=== PATIENT | male | born 1950 | race African-American/Black ===

== ENCOUNTER 2021-02-14 11:41 | Observation (INO) ==
[2021-02-14] MEDS ORDERED: ONDANSETRON 4 MG/2 ML VIAL IV STA (12:25)
[2021-02-14] MEDS ORDERED: SODIUM CHLORIDE 0.9% 1,000 ML IV STA (12:25)
[2021-02-14 12:45] LABS: Basophils % 0.2 % (0.0-0.8); Eosinophils % 0.3 % (0.00-10.9); Hematocrit 37.1 VOL% (42.0-52.0); Hemoglobin 12.5 GM/DL (14.0-18.0); Immature Granulocytes % 0.3 %; Immature Granulocytes Absolute 0.02 #; Lymphocytes # 1.5 10*3/uL (1.4-4.0); Mean Corpuscular HGB Conc 33.7 GM/DL (32-36); Mean Corpuscular Volume 85.1 FL (87-102); Monocytes % 5.1 % (1.7-12.7); Neutrophils % 71.1 % (38.7-73.9); Platelet Count 239 T/CUMM (130-400); Red Blood Count 4.36 MC/CUMM (3.8-5.5); Red Cell Distribution Width 12.4 % (9.3-17.3); White Blood Count 6.5 T/CUMM (4-12)
[2021-02-14 13:06] LABS: Albumin 3.8 G/DL (3.4-5.0); Bilirubin,Total 0.8 MG/DL (0.2-1.0); Calcium 9.7 MG/DL (8.5-10.1); Osmolality,Calculated 284.4 MOS/KG (273-304); Potassium 4.9 MMOL/L (3.5-5.1); Total Protein 8.5 G/DL (6.4-8.2)
[2021-02-14 13:17] LABS: Anisocytosis 1+; Burr Cells Few; Platelet Estimate Normal
[2021-02-14 13:22] LABS: Bilirubin,Urine Negative (Negative); Blood, Urine Negative (Negative); Glucose,Urine (UA) >=500 mg/dL (Negative); Ketones,Urine 5 mg/dL (Negative); Nitrite,Urine Negative (Negative); Protein,Urine 100 MG/DL; RBC,Urine 1 /HPF (0-4); Urine Appearance CLEAR (Clear); Urine Color Straw (Yellow); Urine Specific Gravity 1.013 (1.001-1.035); Urine Urobilinogen < 2.0 EU/DL (0.2-1.0)
[2021-02-14] MEDS ORDERED: PROMETHAZINE 25 MG/1 ML VIAL IM STA (14:31)
[2021-02-14] MEDS ORDERED: GLUCAGON 1 MG VIAL IM PRN (17:18)
[2021-02-14] MEDS ORDERED: DEXTROSE 50% 25 GM/50 ML VIAL IV PRN (17:18)
[2021-02-14] MEDS ORDERED: PROMETHAZINE 25 MG/1 ML VIAL IM PRN (17:18)
[2021-02-14] MEDS ORDERED: hydrALAZINE 20 MG/1 ML VIAL IV PRN (17:18)
[2021-02-14] MEDS: ENOXAPARIN 40 MG/0.4 ML SYRINGE SUBCUT SCH (18:22)
[2021-02-14] MEDS: MORPHINE 4 MG/1 ML VIAL IV PRN (19:06)
[2021-02-14] MEDS: ONDANSETRON 4 MG/2 ML VIAL IV PRN (19:08)
[2021-02-14] MEDS: SODIUM CHLORIDE 0.9% 1,000 ML IV SCH (19:08)
[2021-02-14] MEDS: INSULIN LISPRO 100 UNIT/ML SUBCUT SCH (21:34)
[2021-02-15] MEDS: MORPHINE 4 MG/1 ML VIAL IV PRN ×3 (00:23→21:37)
[2021-02-15] MEDS: ONDANSETRON 4 MG/2 ML VIAL IV PRN ×2 (00:23→04:14)
[2021-02-15] MEDS ORDERED: INDOCYANINE GREEN 25 MG VIAL IV ONE (00:54)
[2021-02-15 05:53] LABS: Basophils % 0.1 % (0.0-0.8); Hematocrit 37.5 VOL% (42.0-52.0); Hemoglobin 12.7 GM/DL (14.0-18.0); Immature Granulocytes % 0.3 %; Immature Granulocytes Absolute 0.03 #; Lymphocytes # 1.8 10*3/uL (1.4-4.0); Lymphocytes % 18.3 % (21.2-54.2); Mean Corpuscular HGB Conc 33.9 GM/DL (32-36); Mean Corpuscular Volume 85.8 FL (87-102); Mean Platelet Volume 11.2 FL (9.6-12.0); Monocytes % 6.8 % (1.7-12.7); Neutrophils % 74.5 % (38.7-73.9); Platelet Count 282 T/CUMM (130-400); Red Blood Count 4.37 MC/CUMM (3.8-5.5); Red Cell Distribution Width 12.6 % (9.3-17.3); White Blood Count 9.9 T/CUMM (4-12)
[2021-02-15 06:18] LABS: Calcium 9.2 MG/DL (8.5-10.1); Osmolality,Calculated 287.7 MOS/KG (273-304); Potassium 4.2 MMOL/L (3.5-5.1)
[2021-02-15] MEDS: SODIUM CHLORIDE 0.9% 1,000 ML IV SCH ×2 (06:45→16:18)
[2021-02-15] MEDS: INSULIN LISPRO 100 UNIT/ML SUBCUT SCH ×4 (09:10→21:36)
[2021-02-15] MEDS: PANTOPRAZOLE 40 MG TABLET PO SCH (09:10)
[2021-02-15] MEDS ORDERED: LIDOCAINE 2% 5 ML VIAL ONE (10:40)
[2021-02-15] MEDS ORDERED: ROCURONIUM 50 MG/5 ML VIAL IV ONE (10:40)
[2021-02-15] MEDS ORDERED: MIDAZOLAM 2 MG/2 ML VIAL ONE (10:40)
[2021-02-15] MEDS ORDERED: propofoL 200 MG/20 ML VIAL IV ONE (10:40)
[2021-02-15] MEDS ORDERED: fentaNYL 100 MCG/2 ML VIAL ONE ×2 (10:40→13:04)
[2021-02-15] MEDS ORDERED: BUPIVACAINE MPF 0.25% 30 ML VIAL ONE (10:43)
[2021-02-15] MEDS ORDERED: LIDOCAINE 1% 20 ML VIAL ONE (10:43)
[2021-02-15] MEDS ORDERED: TISSUE ADHESIVE 1 EACH APPLICATOR TOP ONE ×2 (10:43→12:21)
[2021-02-15] MEDS ORDERED: DEXTROSE 50% 25 GM/50 ML VIAL IV PRN (11:05)
[2021-02-15] MEDS ORDERED: GLUCAGON 1 MG VIAL IM PRN (11:05)
[2021-02-15] MEDS ORDERED: ePHEDrine 50 MG/ML VIAL ONE (12:20)
[2021-02-15] MEDS ORDERED: LIDOCAINE 1%/EPI INJ 20 ML VIAL ONE (12:22)
[2021-02-15] MEDS ORDERED: SEVOFLURANE 1 UNIT/15 MINUTE INH ONE ×3 (12:54→13:07)
[2021-02-15] MEDS ORDERED: ONDANSETRON 4 MG/2 ML VIAL ONE (12:54)
[2021-02-15] MEDS ORDERED: SUGAMMADEX 200 MG/2 ML VIAL IV ONE (12:55)
[2021-02-15] MEDS ORDERED: HYDROmorphone 2 MG/1 ML VIAL ONE (13:17)
[2021-02-15] MEDS: HYDROmorphone 2 MG/1 ML VIAL IV PRN ×2 (13:25→14:00)
[2021-02-15] MEDS ORDERED: ONDANSETRON 4 MG/2 ML VIAL IV PRN (13:31)
[2021-02-15] MEDS: SIMVASTATIN 10 MG TABLET PO SCH (21:38)
[2021-02-15] MEDS: ENOXAPARIN 40 MG/0.4 ML SYRINGE SUBCUT SCH (21:41)
[2021-02-16] MEDS: MORPHINE 4 MG/1 ML VIAL IV PRN ×3 (04:40→19:16)
[2021-02-16] MEDS: SODIUM CHLORIDE 0.9% 1,000 ML IV SCH ×2 (04:49→17:36)
[2021-02-16 05:52] LABS: Basophils % 0.2 % (0.0-0.8); Eosinophils % 0.2 % (0.00-10.9); Hematocrit 37.7 VOL% (42.0-52.0); Hemoglobin 12.1 GM/DL (14.0-18.0); Immature Granulocytes % 0.3 %; Immature Granulocytes Absolute 0.03 #; Lymphocytes # 1.9 10*3/uL (1.4-4.0); Mean Corpuscular HGB Conc 32.1 GM/DL (32-36); Mean Corpuscular Volume 89.8 FL (87-102); Mean Platelet Volume 11.4 FL (9.6-12.0); Monocytes % 3.5 % (1.7-12.7); Neutrophils % 79.8 % (38.7-73.9); Platelet Count 266 T/CUMM (130-400); Red Cell Distribution Width 12.8 % (9.3-17.3); White Blood Count 11.9 T/CUMM (4-12)
[2021-02-16 06:16] LABS: Albumin 2.9 G/DL (3.4-5.0); Bilirubin,Total 2.2 MG/DL (0.2-1.0); Calcium 8.7 MG/DL (8.5-10.1); Osmolality,Calculated 284.8 MOS/KG (273-304); Potassium 4.7 MMOL/L (3.5-5.1); Total Protein 7.5 G/DL (6.4-8.2)
[2021-02-16] MEDS: INSULIN LISPRO 100 UNIT/ML SUBCUT SCH ×4 (08:42→21:42)
[2021-02-16] MEDS: amLODIPine 5 MG TABLET PO SCH (08:43)
[2021-02-16] MEDS: lisinopriL 10 MG TABLET PO SCH (08:43)
[2021-02-16] MEDS: PANTOPRAZOLE 40 MG TABLET PO SCH (08:43)
[2021-02-16] MEDS ORDERED: ZALEPLON 5 MG CAPSULE PO PRN (20:38)
[2021-02-16] MEDS ORDERED: SODIUM CHLORIDE 0.65% NASAL SPRAY 45 ML BOTTLE BOTH NARES PRN (20:38)
[2021-02-16] MEDS: ENOXAPARIN 40 MG/0.4 ML SYRINGE SUBCUT SCH (20:54)
[2021-02-16] MEDS: oxyCODONE/ACETAMINOPHEN 5-325 MG TABLET PO PRN (20:55)
[2021-02-16] MEDS: SIMVASTATIN 10 MG TABLET PO SCH (20:55)
[2021-02-16] MEDS ORDERED: INSULIN GLARGINE 100 UNIT/ML SUBCUT SCH (21:00)
[2021-02-17 05:21] LABS: Basophils % 0.2 % (0.0-0.8); Eosinophils # 0.1 10*3/uL (0.0-0.87); Eosinophils % 1.2 % (0.00-10.9); Hematocrit 34.2 VOL% (42.0-52.0); Hemoglobin 11.5 GM/DL (14.0-18.0); Immature Granulocytes % 0.2 %; Immature Granulocytes Absolute 0.02 #; Lymphocytes # 3.9 10*3/uL (1.4-4.0); Lymphocytes % 42.9 % (21.2-54.2); Mean Corpuscular HGB Conc 33.6 GM/DL (32-36); Mean Corpuscular Volume 86.6 FL (87-102); Monocytes % 6.8 % (1.7-12.7); Neutrophils % 48.7 % (38.7-73.9); Platelet Count 242 T/CUMM (130-400); Red Blood Count 3.95 MC/CUMM (3.8-5.5); Red Cell Distribution Width 12.5 % (9.3-17.3)
[2021-02-17] MEDS: SODIUM CHLORIDE 0.9% 1,000 ML IV SCH ×2 (05:29)
[2021-02-17 06:00] LABS: Albumin 2.7 G/DL (3.4-5.0); Bilirubin,Direct 0.35 MG/DL (0.0-0.20); Bilirubin,Total 2.2 MG/DL (0.2-1.0); Calcium 8.4 MG/DL (8.5-10.1); Osmolality,Calculated 281.4 MOS/KG (273-304); Potassium 3.5 MMOL/L (3.5-5.1); Total Protein 6.9 G/DL (6.4-8.2)
[2021-02-17] MEDS: INSULIN LISPRO 100 UNIT/ML SUBCUT SCH (10:35)
[2021-02-17] MEDS: lisinopriL 10 MG TABLET PO SCH (10:53)
[2021-02-17] MEDS: oxyCODONE/ACETAMINOPHEN 5-325 MG TABLET PO PRN (10:53)
[2021-02-17] MEDS: PANTOPRAZOLE 40 MG TABLET PO SCH (10:54)
[2021-02-17] MEDS: amLODIPine 5 MG TABLET PO SCH (10:54)
[2021-02-17 11:55] VITALS: BP 127/61
== END 2021-02-17 14:40 | disposition home or self-care (01) ==
LOC: N.ED 11:41 → N.EDINP 11:41 → N.5E 19:01
PROVIDERS: ADMIT Internal Medicine; ATTEND Internal Medicine

== ENCOUNTER 2021-05-24 01:53 | Observation (INO) ==
[2021-05-24 02:40] LABS: Basophils % 0.1 % (0.0-0.8); Hematocrit 31.9 VOL% (42.0-52.0); Hemoglobin 10.1 GM/DL (14.0-18.0); Immature Granulocytes % 0.6 %; Immature Granulocytes Absolute 0.12 #; Lymphocytes % 5.1 % (21.2-54.2); Mean Corpuscular HGB Conc 31.7 GM/DL (32-36); Mean Corpuscular Volume 90.4 FL (87-102); Mean Platelet Volume 10.7 FL (9.6-12.0); Monocytes % 3.4 % (1.7-12.7); Neutrophils % 90.8 % (38.7-73.9); Platelet Count 277 T/CUMM (130-400); Red Blood Count 3.53 MC/CUMM (3.8-5.5); Red Cell Distribution Width 12.5 % (9.3-17.3); White Blood Count 19.3 T/CUMM (4-12)
[2021-05-24 03:11] LABS: Hypochromasia 1+; Lymphocytes 3 % (20-55); Microcytosis Slight; Ovalocytes Slight; Segmented Neutrophils 94 % (50-85); Total Cells Counted 100
[2021-05-24 03:12] LABS: Acanthocytes Few; Albumin 2.6 G/DL (3.4-5.0); Calcium 8.4 MG/DL (8.5-10.1); Osmolality,Calculated 278.2 MOS/KG (273-304); Platelet Estimate Normal; Potassium 5.2 MMOL/L (3.5-5.1); Total Protein 8.1 G/DL (6.4-8.2)
[2021-05-24] MEDS ORDERED: CLINDAMYCIN INJ 600 MG/50 ML PREMIX IV STA (03:15)
[2021-05-24] MEDS ORDERED: MORPHINE 2 MG/1 ML SYRINGE IV STA (03:15)
[2021-05-24] MEDS ORDERED: INSULIN REGULAR 100 UNIT/ML IV STA ×2 (03:15→04:21)
[2021-05-24] MEDS ORDERED: ONDANSETRON 4 MG/2 ML VIAL IV ONE (03:15)
[2021-05-24 04:08] LABS: ABG Base Excess -4.2 MMOL/L (-2.5-2.5); ABG HCO3 20.9 MMOL/L (20-26); ABG PCO2 29.8 MM HG (35-48); ABG PH 7.421 (7.35-7.45); ABG PO2 78.9 MM HG (80-95); ABG TCO2 17.8 MMOL/L (23-27)
[2021-05-24] MEDS ORDERED: SODIUM CHLORIDE 0.9% 1,000 ML IV STA (04:22)
[2021-05-24] MEDS ORDERED: DEXTROSE 50% 25 GM/50 ML VIAL IV PRN (04:24)
[2021-05-24] MEDS ORDERED: GLUCAGON 1 MG VIAL IM PRN (04:24)
[2021-05-24] MEDS ORDERED: ONDANSETRON 4 MG/2 ML VIAL IV PRN (04:33)
[2021-05-24] MEDS ORDERED: MORPHINE 2 MG/1 ML SYRINGE IV PRN (04:33)
[2021-05-24] MEDS: SODIUM CHLORIDE 0.9% 1,000 ML IV SCH ×2 (06:08→16:21)
[2021-05-24 06:34] LABS: Basophils % 0.1 % (0.0-0.8); Hemoglobin 10.1 GM/DL (14.0-18.0); Immature Granulocytes % 1.2 %; Immature Granulocytes Absolute 0.25 #; Lymphocytes # 1.6 10*3/uL (1.4-4.0); Lymphocytes % 7.9 % (21.2-54.2); Mean Corpuscular HGB Conc 32.6 GM/DL (32-36); Mean Corpuscular Volume 88.1 FL (87-102); Mean Platelet Volume 10.4 FL (9.6-12.0); Monocytes % 6.8 % (1.7-12.7); Platelet Count 286 T/CUMM (130-400); Red Blood Count 3.52 MC/CUMM (3.8-5.5); Red Cell Distribution Width 12.3 % (9.3-17.3); White Blood Count 20.2 T/CUMM (4-12)
[2021-05-24 06:54] LABS: Hypochromasia 1+; Lymphocytes 8 % (20-55); Microcytosis 1+; Platelet Estimate Adequate; Segmented Neutrophils 89 % (50-85); Total Cells Counted 100
[2021-05-24 07:08] LABS: Albumin 2.6 G/DL (3.4-5.0); Bilirubin,Total 0.8 MG/DL (0.20-1.00); Calcium 8.6 MG/DL (8.5-10.1); Osmolality,Calculated 280.4 MOS/KG (273-304); Potassium 4.6 MMOL/L (3.5-5.1); Total Protein 8.4 G/DL (6.4-8.2)
[2021-05-24] MEDS: INSULIN REGULAR 100 UNIT/ML SUBCUT SCH ×4 (09:03→20:26)
[2021-05-24] MEDS: VANCOMYCIN INJ 1,500 MG in SODIUM CHLORIDE 0.9% 500 ML IV SCH (12:13)
[2021-05-24] MEDS ORDERED: ENOXAPARIN 40 MG/0.4 ML SYRINGE SUBCUT SCH (16:00)
[2021-05-24] MEDS: oxyCODONE/ACETAMINOPHEN 5-325 MG TABLET PO PRN ×2 (16:20→22:11)
[2021-05-24] MEDS: DOCUSATE SODIUM 100 MG CAPSULE PO SCH (20:26)
[2021-05-25] MEDS: SODIUM CHLORIDE 0.9% 1,000 ML IV SCH (00:01)
[2021-05-25] MEDS: oxyCODONE/ACETAMINOPHEN 5-325 MG TABLET PO PRN (04:32)
[2021-05-25 05:44] LABS: Basophils # 0.1 10*3/uL (0.0-0.2); Basophils % 0.2 % (0.0-0.8); Eosinophils # 0.2 10*3/uL (0.0-0.87); Eosinophils % 0.8 % (0.00-10.9); Hematocrit 29.1 VOL% (42.0-52.0); Hemoglobin 9.7 GM/DL (14.0-18.0); Immature Granulocytes % 1.1 %; Immature Granulocytes Absolute 0.23 #; Lymphocytes # 2.8 10*3/uL (1.4-4.0); Lymphocytes % 13.8 % (21.2-54.2); Mean Corpuscular HGB Conc 33.3 GM/DL (32-36); Mean Corpuscular Volume 88.2 FL (87-102); Mean Platelet Volume 11.2 FL (9.6-12.0); Monocytes % 5.5 % (1.7-12.7); Neutrophils % 78.6 % (38.7-73.9); Platelet Count 285 T/CUMM (130-400); Red Cell Distribution Width 12.6 % (9.3-17.3); White Blood Count 20.6 T/CUMM (4-12)
[2021-05-25 05:58] LABS: Albumin 2.3 G/DL (3.4-5.0); Bilirubin,Total 1.4 MG/DL (0.20-1.00); Calcium 8.2 MG/DL (8.5-10.1); Osmolality,Calculated 274.2 MOS/KG (273-304); Potassium 4.6 MMOL/L (3.5-5.1); Total Protein 7.3 G/DL (6.4-8.2)
[2021-05-25] MEDS: VANCOMYCIN INJ 1,500 MG in SODIUM CHLORIDE 0.9% 500 ML IV SCH (06:05)
[2021-05-25 06:59] LABS: Eosinophils 1 % (0-10); Hypochromasia Slight; Lymphocytes 16 % (20-55); Platelet Estimate Normal; Segmented Neutrophils 79 % (50-85); Total Cells Counted 100
[2021-05-25 08:10] VITALS: BP 145/67
[2021-05-25] MEDS ORDERED: SODIUM HYPOCHLORITE 0.25% IRRIG 473 ML BOTTLE TOP SCH (09:00)
[2021-05-25] MEDS ORDERED: amLODIPine 5 MG TABLET PO SCH (09:00)
[2021-05-25] MEDS: DOCUSATE SODIUM 100 MG CAPSULE PO SCH (09:36)
[2021-05-25] MEDS: INSULIN REGULAR 100 UNIT/ML SUBCUT SCH (09:38)
[2021-05-25] MEDS ORDERED: SIMVASTATIN 10 MG TABLET PO SCH (21:00)
[2021-05-25] MEDS ORDERED: INSULIN GLARGINE 100 UNIT/ML SUBCUT SCH (21:00)
== END 2021-05-25 12:15 | disposition home or self-care (01) ==
LOC: N.ED 01:53 → N.EDINP 01:53 → SUATTDRO 04:24 → N.3E 04:57 → N.TELES 05:17
PROVIDERS: ADMIT Internal Medicine; ATTEND Internal Medicine